=== PATIENT | female | born 1940 | race Caucasian/White ===

== ENCOUNTER 2024-12-13 17:32 | Emergency (ER) | payer MEDICARE, OTHER ==
[~2024-12-13] VITALS: Ht 167.6 cm; Wt 62.1 kg
[2024-12-13 18:00] LABS: PLATELET COUNT (AUTO) 162 K/uL (150-450); RED BLOOD CELL COUNT(AUTO) 4.45 MIL/uL (4.0-5.2); RED CELL DISTRIBUTION WIDTH 14.4 % (11.5-15.0); WHITE BLOOD COUNT (AUTO) 5.9 K/uL (4.3-11.0)
[2024-12-13 18:06] LABS: CALCIUM, SERUM 8.6 mg/dL (8.5-10.1); CREATININE 1.1 mg/dL (0.6-1.3); SODIUM SERUM 135.0 mmol/L (136-145); UREA NITROGEN, BLOOD 32.0 mg/dL (7-18)
[2024-12-13] MEDS ORDERED: IV NS 0.9% 250 ML IV ONE (18:08)
[2024-12-13] MEDS ORDERED: IOHEXOL-300 100 ML VIAL IV ONE (18:08)
[2024-12-13 18:11] LABS: ASPARTATE AMINOTRANSFERASE 13.0 U/L (15-37); TOTAL PROTEIN, SERUM 6.5 g/dL (6.4-8.2)
[2024-12-13 18:57] LABS: APPEARANCE,URINE CLEAR (CLEAR); BLOOD, URINE NEGATIVE Ery/uL (NEGATIVE); LEUKOCYTE ESTERASE ,URINE NEGATIVE (NEGATIVE); NITRITE, URINE POSITIVE (NEGATIVE); UGLUCOSE 3+ mg/dL (NEGATIVE)
[2024-12-13 19:08] LABS: ADD URINE CULTURE YES
[2024-12-13] MEDS ORDERED: CEFTRIAXONE 1GM BAG (ER ONLY) 50 ML IV ONE (19:21)
[2024-12-13] MEDS: CEFTRIAXONE 1GM BAG (ER ONLY) 1 GM/50 ML PIGGYBACK IV ONE (19:30)
[2024-12-13] MEDS ORDERED: POLY17PO4 PO (19:58)
[2024-12-13] MEDS ORDERED: CEPH-570 PO (19:58)
[2024-12-13 21:08] VITALS: BP 149/77; TEMP 98.3; O2SAT 99
== END 2024-12-13 21:08 | disposition home or self-care (01) ==
LOC: ER 17:34
DX: N39.0 Urinary tract infection, site not specified (principal); K59.00 Constipation, unspecified; R10.9 Unspecified abdominal pain
CPT/HCPCS: 36415; 76705-TC; 80053-TC; 81001; 83690-TC; 85025-TC; 87086-TC; J0696; J7050; Q9967